=== PATIENT | male | born 1980 | race Caucasian/White ===

== ENCOUNTER 2020-09-25 15:55 | Observation (INO) | payer BC, SELFPAY ==
--- NOTE | ~2020-09-25 | CT_ITS ---
EXAMINATION: CT brain wo con DATE: 09/25/2020 16:37 INDICATION: Dizziness. Hypertension. Syncope. TECHNIQUE: Computed tomography (CT) of the head was performed without intravenous contrast. The mA wa s adjusted according to patient size. Iterative reconstruction technique was employed. Exam dose: 60 5.33 mGy-cm total exam DLP. COMPARISON: None FINDINGS: No intracranial mass lesion or hemorrhage or cerebrovascular accident is evident. No midlin e shift or mass effect. No subdural or epidural hematoma. No fracture or bone destruction. Paranasal sinuses and mastoid air cells are normally developed and aerated except patchy bilateral ethmoid soft tissue opacification and minimal mucoperiosteal thickeni ng of the sphenoid sinuses. IMPRESSION: No significant intracranial abnormality Reviewed, dictated and finalized at [facility]. Reviewed, dictated and finalized at location [facility].
--- NOTE | ~2020-09-25 | XR_ITS ---
EXAMINATION: XR chest 2V EXAM DATE: 09/25/2020 16:40 INDICATION: Chest pain, syncopal, dizziness, history high blood pressure. TECHNIQUE: Frontal and lateral projections of the chest obtained and reviewed. There is no prior shannon dy for comparison. FINDINGS: The lungs are clear. There are no pleural effusions. The cardiomediastinal silhouette is within normal limits. There is no pneumothorax suspected. The bones and soft tissues are unremarkab le. IMPRESSION: Unremarkable chest x-ray exam. Reviewed, dictated and finalized at location [facility].
[2020-09-25 16:02] VITALS: BP 183/119; PULSE 106; RESP 18; TEMP 36.1; O2SAT 98
--- NOTE | 2020-09-25 16:06 | ECG_ITS ---
Measurements Intervals [place] Rate: 97 P: 21 [place]: 142 QRS: -29 QRSD: 103 T: -2 QT: 327 QTc: 417 Interpretive Statements SINUS RHYTHM VOLTAGE CRITERIA FOR LVH POOR R WAVE PROGRESSION, ANTERIOR LEADS BORDERLINE T WAVE ABNORMALITY- INFERIOR LEADS BASELINE WANDER- II, III, AVF, V3 BORDERLINE ECG Electronically Signed On 09-25-2020 17:06:40 CDT by Melvin Robles D.O.
[2020-09-25 16:26] LABS: Basophils Absolute Auto 0.1 K/mm3 (0.0-0.1); Basophils Percent Auto 0.8 % (0.2-1.2); Eosinophils Absolute Auto 0.1 K/mm3 (0-0.3); Eosinophils Percent Auto 1.5 % (0-4.4); Hemoglobin 16.4 g/dL (14.0-18.0); Immature Granulocyte Absolute 0.02 K/mm3 (0.00-0.031); Immature Granulocyte Percent A 0.2 % (0-0.5); Lymphocytes Absolute Auto 2.36 K/mm3 (0.9-3.2); Lymphocytes Percent Auto 26.8 % (18.3-44.2); Mean Corpuscular HGB Conc 34.9 g/dl (32-36); Mean Corpuscular Hemoglobin 32.3 pg (26-34); Mean Corpuscular Volume 92.5 fl (80-100); Mean Platelet Volume 10.3 fl (7.4-10.4); Monocytes Absolute Auto 0.5 K/mm3 (0.1-0.6); Neutrophils Absolute Auto 5.7 K/mm3 (1.3-6.7); Neutrophils Percent Auto 64.7 % (45.5-73.1); Platelet Count Result 210 k/mm3 (150-375); Red Blood Count 5.08 M/mm3 (4.6-6.20); Red Cell Distribution Width 13.3 % (11.5-14.5); White Blood Count 8.8 K/mm3 (4.5-10.0)
--- NOTE | 2020-09-25 16:28 | ED.GENADULT ---
HPI - General Adult General Chief complaint: Dizziness Stated complaint: high blood pressure, cp Time Seen by Provider: 09/25/20 16:08 Source: patient and RN notes reviewed Mode of arrival: ambulatory Limitations: no limitations History of Present Illness HPI narrative: This is a 40 year old male who presents for evaluation of dizziness and hypertension. Patient has noticed that his BP has been running 140s/110s for a while. He states starting Wednesday he started having intermittent episodes of chest pain and dizziness. He states on Wednesday he was packing up when he developed midsternal chest pain that he describes as indigestion. He states this pain did not radiated, and it lasted for 30 minutes. He states it was associated with diaphoresis, dizziness and sob. 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 He denies focal deficits. He has an appointment with his PCP tomorrow morning. He denies any symptoms currently. Related Data Allergies Allergy/AdvReac Type Severity Reaction Status Date / Time No Known Allergies Allergy Mild Verified 02/02/20 09:05 Review of Systems Review of Systems: All systems reviewed & are unremarkable except as noted in HPI and below Constitutional: Constitutional: Denies chills and Denies fever(s) Eyes: Eyes: Reports change in vision ENT: Denies dizziness and Denies sore throat Cardiovascular: Cardiovascular: Reports chest pain and Denies radiating jaw, neck or arm pain Respiratory: Respiratory: Denies cough and Reports dyspnea Gastrointestinal: Gastrointestinal: Denies abdominal pain, Denies diarrhea and Denies vomiting Musculoskeletal: Musculoskeletal: Reports back pain Neurologic: Reports headache(s), Denies focal weakness and Denies numbness PMFSH Past Medical History Medical History (Updated 09/26/20 @ 01:34 by Annemarie Felipe MD) Eczema Gout Surgical History Surgical History (Updated 09/25/20 @ 22:35 by Aurora Garcia PA-C) No history of previous surgery Family History Family History Father Hypertension Sibling Patient's sister is in good health Patient's brother is in good health Mother Diabetes mellitus Social History Social History (Updated 09/25/20 @ 22:36 by Aurora Garcia PA-C) Social History: The patient is and lives with his in [place]. He owns his own business. He chews tobacco daily and drinks perhaps 2 beers in evening. No illicit substance use. He designates his Aissatou as his surrogate decision maker and he wishes to be a full code. Exam Const: General: no acute distress and alert Orientation/consciousness: patient oriented x3 HENMT: Ears: TM's normal bilaterally Face and sinus: normal facial exam, sinuses nontender and face symmetric Mouth: Yes Normal oral and palatal mucosa present, Yes lip normal, Yes oropharynx normal and Yes moist mucous membranes Eyes: Pupils: Equal, round and reactive pupils present EOM: EOMs intact bilaterally Resp: Effort & Inspection: normal respiratory effort and no retractions Auscultation: clear to auscultation bilaterally Cardio: Rate: regular rate Rhythm: regular rhythm Heart sounds: no murmurs GI: GI Palp: Yes Soft to palpation, No Tenderness to palpation present (GI) and No Guarding due to palpation present (GI) Auscultation: normal bowel sounds Skin: General skin exam: normal color Rashes: no rashes Neuro: General: patient oriented x3, moves all extremities, no meningeal signs, no focal motor deficits and CN's II-XI intact bilaterally Cranial nerves: Yes CN's II-XII intact bilaterally and Yes Nystagmus not present Speech: normal speech Motor exam (neuro): 5/5 motor strength present throughout Sensory Exam: normal sensation Psych: Mental Status: mental status grossly normal Affect: normal affect Course C
[2020-09-25 16:36] LABS: INR 0.8; Partial Thromboplastin Time 26.9 SECONDS (22.3-36.8); Prothrombin Time 11.9 Seconds (11.1-14.7)
[2020-09-25 16:43] LABS: Anion Gap 15 mmol/L (8-16); Blood Urea Nitrogen 19 mg/dL (9-20); Carbon Dioxide 25 mmol/L (22-30); Chloride 106 mmol/L (98-107); Estimated CRCL calculation 82 ml/min; Estimated Glomerular Filt Rate > 60; Glucose 98 mg/dL (75-110); Potassium 3.8 mmol/L (3.4-5.0); Sodium 146 mmol/L (137-145)
[2020-09-25 16:44] LABS: Alanine Aminotransferase 102 U/L (4-50); Albumin Level 4.9 g/dL (3.5-5.1); Alkaline Phosphatase 46 U/L (38-126); Aspartate Amino Transferase 56 U/L (17-59); Bilirubin,Total 0.6 mg/dL (0.2-1.3); Creatine Kinase 245 U/L (55-170); Magnesium 1.8 mg/dL (1.6-2.3)
--- NOTE | 2020-09-25 16:45 | PC.NURSE ---
pt given urinal to attempt to provide u/a
[2020-09-25 16:52] LABS: NT Pro B Type Natriuretic Pept 65 pg/mL (5-100)
[2020-09-25 16:55] LABS: Troponin I < 0.012 ng/mL (0.000-0.034)
[2020-09-25 17:09] VITALS: BP 142/105; PULSE 79; RESP 18; O2SAT 97
[2020-09-25] MEDS: LABETALOL HCL INJ 100 MG/20 ML VIAL 20 MG IV PUSH (17:09)
[2020-09-25] MEDS: ASPIRIN 81 MG CHEWABLE TABLET 324 MG (17:11)
[2020-09-25 17:15] LABS: Add Urine Microscopic? NO; Appearance Urine Clear (Clear); Bilirubin Urine Negative (Negative); Blood Urine Negative (Negative); Color Urine Yellow (Yellow); Glucose Urine UA Negative (Negative); Ketones Urine Negative (Negative); Leukocyte Esterase Ur Negative LEU/UL (Negative); Nitrate Urine Negative (Negative); Protein Urine Negative (Negative); Specific Grav Ur 1.018 (1.001-1.035); Urobilinogen Urine Negative mg/dL (<2.0)
[2020-09-25 17:55] VITALS: BP 138/106; PULSE 79; RESP 18; O2SAT 97
--- NOTE | 2020-09-25 18:15 | PC.NURSE ---
dinner tray ordered for pt at this time
[2020-09-25 18:46] VITALS: BP 141/107; PULSE 75; RESP 20; O2SAT 97
[2020-09-25 19:53] LABS: Troponin I < 0.012 ng/mL (0.000-0.034)
[2020-09-25 20:00] VITALS: BP 122/91; PULSE 76; PULSE 99; RESP 18; TEMP 36.7; O2SAT 99; BMI 33.5
--- NOTE | 2020-09-25 20:00 | PM.IMHP ---
H&P: HPI History of Present Illness Date/Time: 09/25/20 20:00 Chief Complaint: High blood pressure and chest pain. Narrative: This is a pleasant 40-year-old male without any significant medical history presented to the emergency department earlier today via private vehicle from home for evaluation of high blood pressure and chest pain. He has had periods of dizziness and near-syncope over the past nearly 1 week and his , who is an RN, has been monitoring his blood pressures at home and apparently they have been running mainly in the 140s ?for a while.? 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 He also experienced tightness in his mid chest region with shortness of breath although his symptoms seem to pass with rest. The discomfort in his chest did not radiate. Similar symptoms happened today while at work, lasting upwards of 30 minutes, so he went home for the lunch hour at which time his blood pressure was 165/130 according to his . He cannot say for certain that this chest discomfort and dizziness only happens with activity however his symptoms have seemed to occur while at work, doing manual labor. He also reports feeling more dizzy when turning his head to look back or straining his head to look up. He has never been on medication for high blood pressure. He has no known history of cardiac disease or immediate family members with cardiac disease. He denies vertigo, sweats, syncope, focal weakness, paresthesias, palpitations, nausea, and vomiting. He also denies epigastric and abdominal discomfort, indigestion, and GERD symptoms. He does not think he has injured himself or strained any muscles. Review of Systems Review of Systems: Narrative: Twelve systems were reviewed with pertinent positives and negatives as per HPI. No fever, chills, or sweats. He denies recent cold and flu symptoms. No orthopnea, PND, or lower extremity edema. states that he snores heavily. He denies PND and has not noticed any apneic episodes. He is well rested when he wakes in the morning. No blurry vision, polydipsia, or polyuria. He has had a mild ache in his low back and malodorous urine but no dysuria. Except as documented, all other systems were reviewed and are negative. [facility] Past Medical History Medical History (Updated 09/25/20 @ 22:37 by Aurora Garcia PA-C) Eczema Gout Surgical History Surgical History (Updated 09/25/20 @ 22:35 by Aurora Garcia PA-C) No history of previous surgery Family History Family History Father Hypertension Sibling Patient's sister is in good health Patient's brother is in good health Mother Diabetes mellitus Social History Social History (Updated 09/25/20 @ 22:36 by Aurora Garcia PA-C) Social History: The patient is and lives with his in [place]. He owns his own business. He chews tobacco daily and drinks perhaps 2 beers in evening. No illicit substance use. He designates his Aissatou as his surrogate decision maker and he wishes to be a full code. Meds Home Medications and Allergies Home Medications Medication Instructions Recorded Confirmed Type indomethacin 50 mg capsule 50 mg PO BID #60 cap 02/14/20 09/25/20 Rx Allergies Allergy/AdvReac Type Severity Reaction Status Date / Time No Known Allergies Allergy Mild Verified 02/02/20 09:05 Vital Signs Vital Signs - 24 hr 09/25/20 16:02 09/25/20 17:09 09/25/20 17:55 Temperature 97.0 F L Pulse Rate 106 H 79 79 Respiratory Rate 18 18 18 Blood Pressure 183/119 H 142/105 H 138/106 H Pulse Oximetry 98 97 97 09/25/20 18:46 09/25/20 20:00 Temperature 98.0 F Pulse Rate 75 76 Respiratory Rate 20 18 Blood Pressure 141/107 H 122/91 H Pulse Oximetry 97 99 Exam Narrative: Exam Narrative: General: W
[2020-09-25 20:09] VITALS: BMI 33.5
--- NOTE | 2020-09-25 21:27 | ADMGEN ---
This patient, Juwan Mondragon, was admitted to IMU Room 203-01 at 1954. Patient/family oriented to hospital policies and general routines including ID bracelet, bed and alarms, visiting hours, pain management, procedures, bathroom and other care routines, personal items, smoking policy, room service/diet, and visiting hours. Information on how to activate the Rapid Response Team has been discussed. Patient/Family are encouraged to report perceived risks to care and to ask questions if they do not understand what they are told or what they should do.
[2020-09-25 22:33] LABS: Troponin I < 0.012 ng/mL (0.000-0.034)
[2020-09-25 23:33] VITALS: BP 171/95; PULSE 60; RESP 18; TEMP 36.7; O2SAT 99
[2020-09-26] VITALS (10 sets, daily range): BP systolic 134–173; BP diastolic 87–99; PULSE 58–95; RESP 14–20; TEMP 36.6–37.1; O2SAT 98–100
--- NOTE | 2020-09-26 | EST_ITS ---
Patient Info Name: Juwan Mondragon Age: 40 years : 1980 Gender: Male Ht: 67 in Wt: 214 lbs BSA: 2.18 m2 HR: 68 bpm BP: 137 / 94 mmHg Heart Rhythm: Sinus Rhythm Exam Date: 09/26/2020 10:46 AM Exam Location: [facility] Patient Status: Inpatient Admit Date: 09/25/2020 Staff Ordering Physician: Arnaldo Alvarez MD Top Cutter: Debbie Kidd RDCS Attending Provider: ARNALDO ALVAREZ MD Exercise Technologist: Kriss Jha RDCS Exercise Physician: Arnaldo Alvarez MD Exam Type: CA stress echo Study Info Indications R07.89 - Other chest pain Treadmill exercise stress echocardiogram is performed. Summary 1. Negative stress echocardiogram for ischemia by wall motion analysis. 2. Negative eric stress test for ischemic ST changes by ECG criteria. 3. Stress echocardiogram is normal. 4. No exercise-induced chest pain. 5. Hypertensive blood pressure response. 6. Below average exercise capacity for age. Stress Echo Findings Left Ventricle Normal left venticular systolic function with no regional wall motion abnormalities noted at rest. No regional wall motion abnormalities noted post stress. Normal augmentation of all wall segments without evidence of ischemia with stress. Overall global left ventricular systolic function Improved post stress. Left ventricular end systolic volume decreases post stress. Protocol: Eric Stress ECG Details Stage: REST Duration (min): 4 min : 47 sec Speed (mph): 0.0 Grade (%): 0 HR (bpm): 68 SBP (mmHg): 137 DBP (mmHg): 94 METS: --- Stage: REST Duration (min): 17 min : 31 sec Speed (mph): 0.0 Grade (%): 0 HR (bpm): 78 SBP (mmHg): 137 DBP (mmHg): 94 METS: --- Stage: STAGE 1 Duration (min): 1 min : 0 sec Speed (mph): 1.7 Grade (%): 10 HR (bpm): 113 SBP (mmHg): 137 DBP (mmHg): 94 METS: --- Stage: STAGE 1 Duration (min): 2 min : 0 sec Speed (mph): 1.7 Grade (%): 10 HR (bpm): 121 SBP (mmHg): 137 DBP (mmHg): 94 METS: --- Stage: STAGE 1 Duration (min): 3 min : 0 sec Speed (mph): 1.7 Grade (%): 10 HR (bpm): 122 SBP (mmHg): 158 DBP (mmHg): 111 METS: --- Stage: STAGE 2 Duration (min): 1 min : 0 sec Speed (mph): 2.5 Grade (%): 12 HR (bpm): 132 SBP (mmHg): 183 DBP (mmHg): 90 METS: --- Stage: STAGE 2 Duration (min): 2 min : 0 sec Speed (mph): 2.5 Grade (%): 12 HR (bpm): 138 SBP (mmHg): 175 DBP (mmHg): 93 METS: --- Stage: STAGE 2 Duration (min): 3 min : 0 sec Speed (mph): 2.5 Grade (%): 12 HR (bpm): 139 SBP (mmHg): 175 DBP (mmHg): 93 METS: --- Stage: STAGE 3 Duration (min): 1 min : 0 sec Speed (mph): 3.4 Grade (%): 14 HR (bpm): 148 SBP (mmHg): 166 DBP (mmHg): 88 METS: --- Stage: STAGE 3 Duration (min): 2 min : 0 sec Speed (mph): 3.4 Grade (%): 14 HR (bpm): 156 SBP (mmHg): 166 DBP (mmHg): 88 METS: ---
[2020-09-26 04:37] LABS: Hematocrit 41.1 % (42.0-52.0); Hemoglobin 14.5 g/dL (14.0-18.0); Mean Corpuscular HGB Conc 35.3 g/dl (32-36); Mean Corpuscular Hemoglobin 32.3 pg (26-34); Mean Corpuscular Volume 91.5 fl (80-100); Mean Platelet Volume 9.9 fl (7.4-10.4); Platelet Count Result 176 k/mm3 (150-375); Red Blood Count 4.49 M/mm3 (4.6-6.20); Red Cell Distribution Width 13.3 % (11.5-14.5)
[2020-09-26 04:54] LABS: Alanine Aminotransferase 82 U/L (4-50); Albumin Level 4.2 g/dL (3.5-5.1); Alkaline Phosphatase 38 U/L (38-126); Anion Gap 10 mmol/L (8-16); Aspartate Amino Transferase 39 U/L (17-59); Bilirubin,Total 0.5 mg/dL (0.2-1.3); Blood Urea Nitrogen 14 mg/dL (9-20); Calcium 9.4 mg/dL (8.4-10.2); Carbon Dioxide 29 mmol/L (22-30); Chloride 103 mmol/L (98-107); Cholesterol 245 mg/dL (0-200); Creatine Kinase 147 U/L (55-170); Estimated CRCL calculation 87 ml/min; Estimated Glomerular Filt Rate > 60; Glucose 105 mg/dL (75-110); HDL Direct 36 mg/dL; Magnesium 1.9 mg/dL (1.6-2.3); Potassium 3.5 mmol/L (3.4-5.0); Sodium 142 mmol/L (137-145); Triglycerides 146 mg/dL (<150)
[2020-09-26 05:05] LABS: LDL Cholesterol Direct 147 mg/dL
[2020-09-26] MEDS: ACETAMINOPHEN 325 MG TABLET 650 MG PO (05:27)
[2020-09-26] MEDS: ASPIRIN 81 MG CHEWABLE TABLET PO (07:48)
--- NOTE | 2020-09-26 08:53 | PM.CNCAR ---
Assessment and Plan Assessment and plan (1) Elevated blood pressure reading: Code(s): R03.0 - Elevated blood-pressure reading, without diagnosis of hypertension Status: Acute Assessment and Plan: Reports elevated blood pressure readings at home and his measurements have been elevated during his admission - systolic readings up to 183. -We will start him on losartan 25mg daily. May need to add a second agent - perhaps BB -Will follow him as an outpatient. (2) Chest pain: Code(s): R07.9 - Chest pain, unspecified Status: Acute Assessment and Plan: One week of intermittent chest pain. He does not have significant risk factors for coronary disease. However, the chest pain has some typical features that are of concern including relief with rest and a sensation of tightness. EKG showed T wave abnormalities, poor R wave progression. Troponins were negative serially. He is currently free from chest pain. -Will schedule stress echo today -Further recommendations to follow History of Present Illness History of Present Illness Consult date/time: 09/26/20 08:53 cardiology consult for chest pain, hypertension. Patient is a 40-year-old male with significant past medical history. He came into the emergency room for hypertension and chest pain following the advice of his primary care doctor. He states that over the past week he has experienced intermittent episodes of chest pain. 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 He describes the pain as a burning and tightness and states that these episodes last about 30 minutes. He does have associated shortness of breath, dizziness. He states that the pain is relieved by rest. He denies any radiation of the pain to his neck, jaw, back, arm. He states that he feels like in general something has been ?off? for quite some time. In addition to these episodes of chest pain he also notes that when he turns his head especially when he turns to look over his shoulder that he becomes dizzy and has blurry vision. He states that this has been an ongoing issue that he has not been evaluated for. He says that yesterday when he was working he began to experience dizziness, chest pain, and a sensation that he might pass out. He states that he was home for lunch at this time and his who is an RN checked his blood pressure and noted that it was high. He states that he has been checking his blood pressure at home regularly and it has been running high with systolics in the 140's. At this point time he called his primary care doctor and described symptoms - he was advised to proceed to the emergency department. Currently, he is not experiencing any chest pain. He does complain of lower back pain/flank. He states that this is ongoing and he is not sure if it is musculoskeletal or kidney pain. Reason For Visit: Chest Pain, Hypertensive Urgency Review of Systems Review of Systems: All systems reviewed & are unremarkable except as noted in HPI and below Constitutional: Constitutional: Denies chills, Denies difficulty sleeping, Reports lethargy and Denies night sweats Eyes: Eyes: Reports blurry vision ENT: Reports hearing loss and Reports tinnitus Cardiovascular: Cardiovascular: Reports chest pain, Denies diaphoresis, Denies pedal edema, Denies leg edema, Reports lightheadedness and Denies palpitations Respiratory: Respiratory: Denies cough, Reports dyspnea and Denies dyspnea on exertion Gastrointestinal: Gastrointestinal: Denies abdominal pain and Reports diarrhea Genitourinary: Genitourinary: Reports flank pain Musculoskeletal: Musculoskeletal: Reports back pain Integumentary/Breasts: Skin/Breast: Denies wounds Neurologic: Reports headache(s) Endocrine: Endocrine: Denies excessive sweating and Reports fatigue Hematologic/Lymphatic: Hematologic/Lymphatic: [place]
[2020-09-26] MEDS: ATORVASTATIN 20 MG TABLET PO (09:31)
[2020-09-26] MEDS: LOSARTAN POTASSIUM 25 MG TABLET PO (11:39)
--- NOTE | 2020-09-26 12:39 | PM.DS ---
DS: Admitting Diagnosis Admitting Diagnosis Admitting Diagnosis: dizziness, chest pain DS: Discharge Diagnosis Discharge Diagnosis (1) Chest tightness: Code(s): R07.89 - Other chest pain Status: Acute (2) Elevated blood pressure reading: Code(s): R03.0 - Elevated blood-pressure reading, without diagnosis of hypertension Status: Acute (3) Dizziness: Code(s): R42 - Dizziness and giddiness Status: Acute DS: Summary Hospital Course Hospital Course: Patient is a relatively healthy 40-year-old male who presented emergency room a on September 25, 2020 for dizziness and elevated blood pressures. The patient stated he had intermittent dizziness and chest pain. 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 He had Joe passed out with this. He then started having chest pain associated with diaphoresis, slight shortness of breath and dizziness with activity so he came into the emergency room. Vitals in the ER were temperature 97.0? F, pulse 106, respiratory rate 18, blood pressure 183/119, pulse 98 on RA. CBC was within normal limits. BMP showed sodium 146. Troponins negative x3. With poor R wave progression with T-wave abnormality in the inferior leads. Head CT showed no acute abnormality. CXR was negative. Pt was admitted to the hospitalist service to be observed. he had no further CP or dizziness while here. His blood pressure continued to be elevated and he was started on antihypertensives. He did well with this and had no further symptoms. He underwent a treadmill stress test which was negative for ischemia. I spoke with his primary care physician about these findings. I suspect that the dizziness was from the blood pressure and he is going to monitor his blood pressure and symptoms outpatient. He is to follow-up with his primary care physician in 1-2 weeks. If he continues to have dizziness, he may need further workup since it involves him moving his head. I spoke with his primary about possibly CTA of the brain and he suggested possibly a tilt-table test if he continues to have dizziness. Day of discharge the patient was feeling well and has no complaints. He was educated about the worrisome signs and symptoms to come back to emergency room for and was discharged in stable condition. Status at Discharge Functional status at discharge: independent ambulation Overall status at discharge: patient is back to baseline Time Spent with Patient Time attestation: Total time spent providing and/or coordinating discharge services: 38 min Time spent: Greater than 30 minutes Exam Narrative: Exam Narrative: General: Well developed well nourished patient in NAD HEENT: normocephalic Neck: supple Neuro: Alert and oriented x4. Cranial nerves 2-12 intact. Equal strength the upper lower extremities 5/5. Able to do [id number] and rapid alternating movements. Neg epily CV:RRR. Telemetry showed normal sinus rhythm Resp:CTA Abd: Soft, non distended. No pain to palpation. Positive bowel sounds Extremities: No swelling, erythema, or pain to palpation. DS: Data Data Completed and Pending Labs on day of discharge: Labs from last 24 hours 09/26/20 09/26/20 09/26/20 04:16 04:16 04:16 WBC 7.0 RBC 4.49 L Hgb 14.5 Hct 41.1 L MCV 91.5 MCH 32.3 MCHC 35.3 RDW 13.3 Plt Count 176 MPV 9.9 Immature Gran % (Auto) Neut % (Auto) Lymph % (Auto) [place] % (Auto) Eos % (Auto) Baso % (Auto) Lymph # (Auto) [place] # (Auto) Eos # (Auto) Baso # (Auto) Abs Immat Gran (auto) Absolute Neuts (auto) Absolute Nucleated RBC Nucleated RBC % PT INR APTT Sodium 142 Potassium 3.5 Chloride 103 Carbon Dioxide 29 Anion Gap 10 BUN 14 D Creatinine 1.10 Estim Creat Clear Calc 87 Estimated GFR > 60 Glucose 105 Calcium 9.4 Magnesium 1.9 Total Bilir
== END 2020-09-26 13:37 | disposition home or self-care (01) ==
LOC: ANHED 16:28 → ANHIMU 18:43
PROVIDERS: Emergency Medicine; Physician Assistant; Admitting Provider Hospitalist; Emergency Provider General Practice; PCP Internal Medicine; Visit Provider Physician Assistant
DX: R42 Dizziness and giddiness (principal); R07.89 Other chest pain; R03.0 Elevated blood-pressure reading, without diagnosis of hypertension; F17.290 Nicotine dependence, other tobacco product, uncomplicated; R06.02 Shortness of breath
CPT/HCPCS: 36415; 70450; 71046; 80048; 80053; 80061; 80076; 81003; 82550; 83735; 83880; 84443; 84484; 85025; 85027; 85610; 85730; 93005; 93351; 96374; 99285; A9270; G0378